=== PATIENT | male | born 1995 | race Caucasian/White ===

== ENCOUNTER 2017-05-31 | Emergency (ER) | payer OTHER ==
[~2017-05-31] VITALS: Ht 185.4 cm; Wt 109.1 kg
[2017-05-31] MEDS ORDERED: ULTRAM50 M1 PO (01:28)
[2017-05-31 02:12] VITALS: BP 139/63
== END 2017-05-31 02:12 | disposition home or self-care (01) | DRG 605 ==
LOC: ED
DX: S40.812A Abrasion of left upper arm, initial encounter (principal); M79.1 Myalgia; S40.811A Abrasion of right upper arm, initial encounter; S80.812A Abrasion, left lower leg, initial encounter; S80.811A Abrasion, right lower leg, initial encounter; S43.401A Unspecified sprain of right shoulder joint, initial encounter; S90.851A Superficial foreign body, right foot, initial encounter; V50.0XXA Driver of pick-up truck or van injured in collision with pedestrian or animal in nontraffic accident, initial encounter; Y92.488 Other paved roadways as the place of occurrence of the external cause